=== PATIENT | male | born 1990 | race Caucasian/White ===

== ENCOUNTER 2019-03-14 21:41 | Emergency (ER) | payer MEDICAID ==
[~2019-03-14] VITALS: Ht 172.7 cm; Wt 79.3 kg
--- NOTE | 2019-03-14 22:17 | NUR ---
PT ASKING FOR A TETANUS SHOT, EXPERIENCING LOCK JAW.
--- NOTE | 2019-03-14 22:25 | NUR ---
PT DENIES DRUG USE BUT DOES SMOKE POT
[2019-03-14] MEDS ORDERED: LORazepam 1 MG tablet PO ONE (22:40)
[2019-03-14 23:02] LABS: BASOPHILS % (AUTO) 0.6 % (0-1); EOSINOPHILS # (AUTO) 0.1 X10'3 (0-0.9); EOSINOPHILS % (AUTO) 0.9 % (0-6); HEMOGLOBIN 13.3 g/dl (14.0-17.9); LYMPHOCYTES # (AUTO) 1.6 X10'3 (1.1-4.8); LYMPHOCYTES % (AUTO) 24.7 % (21-51); MEAN CORPUSCULAR HEMOGLOBIN 29.9 PG (27.0-31.0); MEAN CORPUSCULAR HGB CONC 34.1 g/dL (33.0-36.5); MEAN CORPUSCULAR VOLUME 87.6 FL (78-98); MEAN PLATELET VOLUME 7.9 FL (7.4-10.4); MONOCYTES # (AUTO) 0.6 X10'3 (0-0.9); MONOCYTES % (AUTO) 9.9 % (2-12); NEUTROPHILS # (AUTO) 4.1 X10'3 (1.8-7.7); NEUTROPHILS % (AUTO) 63.9 % (42-75); PLATELET COUNT 190 X10'3 (140-440); RED BLOOD COUNT 4.46 X10'6 (4.70-6.10); RED CELL DISTRIBUTION WIDTH 13.8 % (11.5-14.5); WHITE BLOOD COUNT 6.5 X10'3 (4.5-11.0)
--- NOTE | 2019-03-14 23:08 | NUR ---
PATIENT RESTING COMFORTABLY IN BED AND REPORTS FEELING MUCH BETTER. AT BEDSIDE.
[2019-03-14 23:13] LABS: ALANINE AMINOTRANSFERASE 19 U/L (12-78); ALBUMIN 3.5 G/DL (3.4-5.0); ALBUMIN/GLOBULIN RATIO 1.1 (1.1-1.5); ALKALINE PHOSPHATASE 63 IU/L (46-116); ANION GAP 5 (8-16); ASPARTATE AMINO TRANSFERASE 14 U/L (10-37); BILIRUBIN,TOTAL 0.2 MG/DL (0.1-1.0); BLOOD UREA NITROGEN 15 MG/DL (7-18); BUN/CREATININE RATIO 17.4 (5.4-32.0); CALCIUM 8.1 MG/DL (8.5-10.1); CHLORIDE 105 MMOL/L (99-107); CREATININE 0.86 MG/DL (0.60-1.10); GLUCOSE 111 MG/DL (70-104); POTASSIUM 3.3 MMOL/L (3.5-5.1); SODIUM 136 MMOL/L (135-145); TOTAL CARBON DIOXIDE 26.5 MMOL/L (24-32); TOTAL PROTEIN 6.6 G/DL (6.4-8.2); eGFR > 90 ML/MIN
[2019-03-14] MEDS ORDERED: potassium Cl 20 mEq SR tablet PO STA (23:31)
[2019-03-14] MEDS ORDERED: TETanus/Pertussis (Acell)/Diphther VAC/PF (Tdap-Adult) 0.5ml syringe IMVAC ONE (23:35)
[2019-03-15] VITALS: BP 121/73
== END 2019-03-14 23:57 | disposition home or self-care (01) ==
LOC: ER 21:42
DX: F41.9 Anxiety disorder, unspecified (principal); E87.6 Hypokalemia; F12.90 Cannabis use, unspecified, uncomplicated
CPT/HCPCS: 36415; 71045; 80053; 85025; 90471; 90715; 93005; 99284

== ENCOUNTER 2025-01-12 15:06 | Emergency (ER) | payer MEDICAID ==
[~2025-01-12] VITALS: Ht 175.3 cm; Wt 81.1 kg
[2025-01-12 15:16] VITALS: BP 142/54; RESP 20; TEMP 97.3
--- NOTE | 2025-01-12 15:46 | RADIOLOGY REPORT ---
CLINICAL INDICATION: Finger Pain TECHNIQUE: Left DI FINGER(S) Comparison: None FINDINGS: Mildly displaced fracture of the palmar base of the 2nd middle phalanx. IMPRESSION: 1. Mildly displaced fracture of the palmar base of the 2nd middle phalanx.
--- NOTE | 2025-01-12 16:18 | Physician Documentation ---
History of Present Illness ~ Chief Complaint: Laceration Stated Complaint: FINGER LAC Time Seen by MD: 15:36 Primary Medical Doctor: IGNACIO SINGH 34-year-old male right-hand dominant injured his left index finger on playground equipment. Has a proximally 1 cm laceration at the flexor surface of the PIP. FDS and FDP grossly intact. He has no current bleeding. Reports that his tetanus immunization is up-to-date. Patient reports that he feels that he may have broke his finger. Tetanus Within 5 Years: No Medication Reconciliation Allergies: Coded Allergies: No Known Allergies (Unverified , 01/12/25) Scheduled Cephalexin*Monohydrate* (Keflex*), 1 CAP PO TID Ibuprofen* (Motrin*), 1 TAB PO Q8H Past Medical History Past Medical History: No Pertinent History Past Surgical History: no surgical history Alcohol Use: None Drug Use: marijuana Lives with: Family Lives In: Home Review of Systems All Other Systems at this time: Reviewed and Negative Musculoskeletal: Reports: pain, other (Laceration) Physical Exam Vital Signs: RN Vital Signs have been reviewed: Yes, Temperature: 97.3, Source: Temporal, Heart Rate: 85, Respiratory Rate: 20, BP: 142/54, Pulse Oximetry: 97, Weight: 81.100 Oxygen Flow Rate: 0 General Appearance: alert, WD/WN, mild distress EENT: PERRL/EOMI Cardiovascular: regular rate, rhythm Respiratory: no respiratory distress Chest: no accessory muscle use Gastrointestinal: non-tender Extremities 1 cm laceration of the flexor surface of the PIP the left index finger Skin: normal color Neurologic: oriented x4 Psychiatric: normal mood/affect Procedures Laceration/Wound Repair Laceration : Location: Left index finger Length (cm): 1 Anesthesia: Lidocaine Volume Anesthetic (mls): 1 Prep: irrigated by nurse Irrigated w/ Saline (mls): 1000 Debrided: minimal Undermining: none Wound Repaired With: sutures Suture Size/Type: 3-0, nylon Splint Applied?: Yes Type of Splint Applied: Volar Sling Applied?: No Tolerated Procedure Well?: yes, no complications Procedure Note Wound was prepped and draped in sterile fashion. After achieving adequate anes thesia was aggressively irrigated. Wound then loose closure with 3.0 nylon sutures. Splint applied for comfort and support which is clean dry and intact. Referral to ortho for follow up. Progress Results/Orders Results/Orders Completed Orders - RUMA CURM Cefazolin Im Kit (Er Only) (Ancef Im Kit (01/12/25 15:55) Lidocaine 1% 30ml Vial (Xylocaine 1% Via (01/12/25 16:05) Medications Received in ER Medications (Trade) Dose Ordered Sig/Lou Route PRN Reason Start Time Stop Time Status Last Admin Dose Admin (Ancef IM kit (ER only)) 1 gm ONCE ONCE IM 01/12/25 15:55 01/12/25 16:05 DC 01/12/25 16:28 1 GM (Xylocaine 1% vial) ONCE STAT IJ 01/12/25 16:05 01/12/25 16:06 DC 01/12/25 16:28 1 ML Vital Signs 01/12/25 15:16 Temp 97.3 Pulse 85 Resp 20 B/P (MAP) 142/54 Pulse Ox 97 O2 Flow Rate 0 Medical Decision Making Additional information obtaine: N/A Findings Examination & history consistent with open avulsion fracture of the to the left index finger over the flexor surface. Please see procedural care. Patient received Ancef 1 g IM. Plan will be to referred to orthopedist. Patient tolerated loose closure well. Outpatient prescription forwarded to pharmacy. FDS & FDP assessed prior and after and remains grossly intact passive and active range of motion. Continues to have full extension and flexor passive and active range of motion For 3.0 nylon interrupted well approximated sutures placed. Splint applied for comfort and support. Patient understands the importance of orthopedic follow up in 72 hour wound check if unable to see orthopedist in the time. Differential Dx:Considerations: Include: Avulsion, Contusion, Laceration, Retained foreign body Departure Disposition: HOME / SELF CARE / HOMELESS Impression: Primary Impression: Open fracture of phalanx of left index finger Qualified Codes: S62.621B - Displaced fracture of middle phalanx of left index finger, initial encounter for open fracture Condition: Improved Discharge Instructions: Laceration Care, Adult, [id number] Additional Instructions: Crazy tonight in the emergency department you received evaluate for an open fracture involving your left index finger. You received antibiotic injection and I have forwarded prescriptions to the pharmacy. Please follow up with the orthopedist as directed. Thank you for visiting emergency department [facility]. Referrals: NO PRIMARY CARE PROVIDER (PCP) SONYA PASCUAL MD 3-4 days 34-year-old male right-hand dominant with left index finger avulsion fracture of the base of the middle phalanx with laceration repair. Please evaluate for definitive management. Thank you [facility] ER Prescriptions Ibuprofen* (Motrin*) 400 Mg Tablet 1 TAB PO Q8H for pain or fever for 10 Days, #30 TAB Prov: RUMA CRUM 01/12/25 Cephalexin*Monohydrate* (Keflex*) 500 Mg Capsule 1 CAP PO TID, #30 CAP Prov: RUMA CRUM 01/12/25 Education Educated: Patient Educated regarding: diagnosis, treatment, prognosis Signature Scribe Signature: . Attestation: . RUMA CRUM Jan 12, 2025 16:17
[2025-01-12] MEDS ORDERED: IBUP-1984 PO (16:19)
[2025-01-12] MEDS ORDERED: CEPH-585 PO (16:19)
[2025-01-12] MEDS: ceFAZolin 1gm IM kit IM ONE (16:28)
[2025-01-12] MEDS: LIDOcaine 1% 30ml preserv. free vial IJ STA (16:28)
[2025-01-12 17:22] VITALS: PULSE 79; O2SAT 99
== END 2025-01-12 17:22 | disposition home or self-care (01) ==
LOC: ER 15:06
DX: S62.621A Displaced fracture of middle phalanx of left index finger, initial encounter for closed fracture (principal); F12.90 Cannabis use, unspecified, uncomplicated; Z79.899 Other long term (current) drug therapy; X58.XXXA Exposure to other specified factors, initial encounter; Y93.89 Activity, other specified; Y92.89 Other specified places as the place of occurrence of the external cause; Y99.8 Other external cause status
CPT/HCPCS: 29125; 73140; 96372; 99283; A6222; J0690; J2003; A6258

== ENCOUNTER 2025-01-15 13:17 | Emergency (ER) | payer MEDICAID ==
[~2025-01-15] VITALS: Ht 175.3 cm; Wt 81.2 kg
[~2025-01-15 13:17] MED LIST: CEPH-585 PO; IBUP-1984 PO
[2025-01-15 13:22] VITALS: BP 130/65; PULSE 89; RESP 16; TEMP 98.5; O2SAT 99
--- NOTE | 2025-01-15 13:34 | Physician Documentation ---
History of Present Illness ~ Chief Complaint: Wound Re-Check Stated Complaint: FINGER LAC RECHECK Time Seen by MD: 13:28 Primary Medical Doctor: [employer] Source: patient Mode of Arrival: POV Exam Limitations: no limitations HPI Patient experienced a large finger laceration was told to come in and have it rechecked. Patient had initially come in on January 12, 2025. Patient is on antibiotics keeping sutures clean and dry. Tetanus within 5 years?: No Medication Reconciliation Allergies: Coded Allergies: No Known Allergies (Unverified , 01/15/25) Scheduled Cephalexin*Monohydrate* (Keflex*), 1 CAP PO TID Ibuprofen* (Motrin*), 1 TAB PO Q8H Past Medical History Past Medical History: No Pertinent History Past Surgical History: no surgical history Alcohol Use: None Drug Use: marijuana Lives with: Family Lives In: Home Review of Systems All Other Systems at this time: Reviewed and Negative Integumentary: Reports: see HPI Physical Exam Vital Signs: RN Vital Signs have been reviewed: Yes, Temperature: 98.5, Source: Oral, Heart Rate: 89, Respiratory Rate: 16, BP: 130/65, Pulse Oximetry: 99, Weight: 81.200 Oxygen Flow Rate: 0 Physical Exam General: Alert, no apparent distress. HEENT: moist mucous membranes. Neck: Full range of motion. Respiratory: No respiratory distress speaking in full sentences Chest: No accessory muscle use. Cardiovascular: Appears well perfused Integumentary: Left index finger sutures in place no signs of infection Neurologic: Oriented x4. Psychiatric: Normal mood and affect. Skin: Normal color, warm and dry. No edema, no ecchymosis. Progress Results/Orders Results/Orders Vital Signs 01/15/25 13:22 Temp 98.5 Pulse 89 Resp 16 B/P (MAP) 130/65 Pulse Ox 99 O2 Flow Rate 0 Medical Decision Making Additional information obtaine: old records Findings Sutures in place and intact no signs of infections good cap refill patient to continue with regimen provided to him on the . Differential Dx:Considerations: Include: Other Departure Time of Disposition: 13:33 Disposition: 01 HOME / SELF CARE / HOMELESS Impression: Primary Impression: Encounter for wound re-check Condition: Stable Discharge Instructions: Sutured Wound Care Additional Instructions: Continue as planned from your January 12 visit. Continue to monitor let air dry when possible. Feel free to return for any new or worsening symptoms Referrals: NO PRIMARY CARE PROVIDER (PCP) Education Educated: Patient Educated regarding: diagnosis, treatment, need for follow up Signature Scribe Signature: No scribe Attestation: The note accurately reflects work and decisions made by me.Karli Khan - BELLA 01/15/25 13:34 KARLI KHAN NP Jan 15, 2025 13:34
== END 2025-01-15 13:40 | disposition home or self-care (01) ==
LOC: ER 13:17
DX: S61.211D Laceration without foreign body of left index finger without damage to nail, subsequent encounter (principal); X58.XXXD Exposure to other specified factors, subsequent encounter
CPT/HCPCS: 99282